=== PATIENT | female | born 1940 | race Caucasian/White ===

== ENCOUNTER → 2019-02-19 11:01 | Oncology outpatient (ONC) | payer MEDICARE, OTHER, SELFPAY ==
[2019-02-19 10:24] VITALS: BP 141/71; PULSE 61; RESP 18; TEMP 36.8; O2SAT 100
--- NOTE | 2019-02-19 10:51 | P.CONONC_ITS ---
History of Present Illness - Data of Consult Consult date: 02/19/19 Primary Care Provider: Ry Garzon MD - Consult Narrative Narrative: Diagnosis: Anemia History of present illness: Elvira Stein is a 78 year old female who is referred for further evaluation of anemia. In November, she was noted to have a white count of 7 point 3, hemoglobin 8.3 hematocrit 26.8 with an MCV of 85 and platelets of [id number]. She had B12 and folate checked that were both normal. In December, her hemoglobin had dropped to 8 hematocrit 25.6 and the MCV was 78. A few weeks later, the CBC was repeated and her hemoglobin had dropped to 6.8 with hematocrit 24.3 and an MCV of 72.8. The patient was referred to the emergency room and did have a transfusion. She believes that prior to the transfusion, she had been feeling fairly well and was going about all of her normal activities. She denied any shortness of breath but did have some dizziness or lightheadedness. She thinks that she might have felt a little bit better after the transfusion. The patient denies any prior history of anemia but her records indicate that she has had prior colonoscopies to evaluate for cause of bleeding in the past. She denies any prior history of transfusion before her most recent episode. She has not been aware of any bleeding and denies any epistaxis or gingival bleeding. She has not been aware of any blood in the urine or stool. She has not had any unusual bruising. Her biggest complaint today is been poor fitting dentures that it made it difficult for her to eat. She has been losing weight. She has some sensitivity to food that she describes as an allergy. She has what sounds like possibly excessive salivation and spitting. She has not noticed any adenopathy. Bowels have been moving somewhat slowly she has some constipation. Her past medical history is notable for hypertension arthritis and allergies. Her had anemia and about a year ago. There is no other family history of anemia. Social history: She is a . She lives by herself. She does not smoke or use alcohol. She previously worked as a job development specialist. CC: Adriano Guo MD Home Medications and Allergies Home Medications Medication Instructions Recorded Confirmed Type bisacodyl 5 mg PO BEDTIME 02/19/19 02/19/19 History cetirizine [Zyrtec] mg 02/19/19 History hydrochlorothiazide 25 mg PO DAILY 02/19/19 02/19/19 History ibuprofen 200 mg PO Q6H PRN 02/19/19 02/19/19 History levocetirizine [Xyzal] 5 mg PO DAILY 02/19/19 02/19/19 History multivitamin 1 cap PO DAILY 02/19/19 02/19/19 History ranitidine HCl [Zantac] 150 mg PO DAILY 02/19/19 02/19/19 History Allergies Allergy/AdvReac Type Severity Reaction Status Date / Time No Known Drug Allergies Allergy Mild PER Unverified 07/26/17 11:47 PATIENT ON 04-07-15 Review of Systems - Patient Self-Reported Symptoms SR Constitution: Weight loss/gain SR Skin issues: Hair loss or scalp prob SR Gastrointestinal issues: Poor or no appetite, Change in bowel pattern SR Hematologic issues: Bleeding/bruising Constitutional: weight loss, normal exercise tolerance Ears, nose, mouth, throat: lightheadedness, dental problems, no gingival bleeding Cardiovascular: edema, no chest pain, no palpitations, no dyspnea on exertion Respiratory: no pain with respirations, no shortness of breath, no cough, no hemoptysis Gastrointestinal: change in appetite, constipation Musculoskeletal: pain Integumentary: no rash, no bleeding or bruising Hematologic/Lymphatic: anemia, no enlarged lymph nodes Exam Vital signs: Vital Signs Temp Pulse Resp BP Pulse Ox 02/19/19 10:24 98.2 F 61 18 141/71 H 100 Intake and Output 02/18/19 02/19/19 02/19/19 23:59 07:59 15:59 Other: Weight 48.4 kg Patient Weight 02/19/19 23:59 Weight 48.4 kg - Constitutional positive no acute distress, positive thin - Routine HEENT Exam Head: Present: normocephalic, atraumatic Eye: Present: EOMI, PERRL. Absent: conjunctival icterus, scleral injection ENT: Present: mucous membranes moist, oropharynx clear. Absent: dentition normal - Routine Neck Exam Present: supple. Absent: lymphadenopathy, thyromegaly - Routine Chest/Breast/Axilla Exam Axillae: Absent: lymphadenopathy - Routine Respiratory Exam Present: Clear to auscultation bilaterally. Absent: rales, wheezes - Routine Cardiovascular Exam Present: RRR, S1, S2. Absent: murmur - Routine Abdominal Exam Present: soft, normoactive bowel sounds. Absent: tenderness, organomegaly, mass - Routine Extremities Exam Absent: cyanosis, clubbing, edema - Routine Back/Spine Exam Back/Spine: Absent: vertebral tenderness - Routine Skin Exam Present: intact. Absent: petechiae, rash - Routine Neurological Exam Present: alert, oriented X3 - Routine Psychiatric Exam Present: normal affect, normal thought process Results - Imaging Additional studies: Procedures Endoscopic polypectomy of large intestine (07/14/14) Assessment and Plan (1) Anemia Current visit: Yes Status: Acute This is a 78-year-old woman with anemia of uncertain duration however it seems to have worsened with the development of a microcytosis of the last few months. This is most concerning for iron deficiency. We will plan on repeating a CBC today as well as a reticulocyte count ferritin and iron studies. She has already had a normal B12 and folate. We will plan on checking SPEP and a UPEP to rule out an underlying myeloma. Hypothyroidism can occasionally present his anemia will check a TSH. She will return to clinic in about 2 weeks or so for follow-up. Id if this is iron deficiency, she may need a colonoscopy to evaluate for a bleeding source. If no cause for her anemia is discovered, we may need to consider a bone marrow biopsy to evaluate for intrinsic problems in the marrow. However, white cell count and platelet count have been normal which is somewhat reassuring.
[2019-02-19 11:22] LABS: Add Manual Diff / Slide Review NO; Basophils Absolute Auto 100 /uL (0-100); Basophils Percent Auto 0.8 % (0-2); Eosinophils Absolute Auto 100 /uL (0-450); Hemoglobin 9.2 g/dL (12.0-16.0); Lymphocytes Absolute Auto 1200 /uL (1100-4500); Lymphocytes Percent Auto 10.8 % (25-40); Mean Corpuscular HGB Conc 30.8 % (30-36); Mean Corpuscular Hemoglobin 20.7 PG (26-34); Mean Corpuscular Volume 67.1 fL (80-100); Monocytes Absolute Auto 1000 /uL (0-900); Monocytes Percent Auto 8.7 % (3-14); Neutrophils Absolute Auto 8600 /uL (1500-7000); Neutrophils Percent Auto 78.7 % (50-75); Platelet Count 489 X10^3/uL (150-400); Red Blood Cell Count 4.48 X10^6/uL (4.0-5.2); Red Cell Distribution Width 20.4 % (11.6-14.8); White Blood Cell Count 10.9 X10^3/uL (4.5-11.0)
[2019-02-19 11:29] LABS: Reticulocyte Count, Percent 1.6 % (1.06-2.63)
[2019-02-19 11:33] LABS: Alanine Aminotransferase 13 IU/L (<35); Albumin 3.7 g/dL (3.5-5.0); Albumin Globulin Ratio 1.3 (1.0-2.8); Alkaline Phosphatase 95 U/L (38-126); Aspartate Aminotransferase 25 IU/L (14-36); Bilirubin Total 0.3 mg/dL (0.2-1.3); Blood Urea Nitrogen 18 mg/dL (7-17); Calcium 8.7 mg/dL (8.4-10.2); Carbon Dioxide 31 mmol/L (22-32); Chloride 95 mmol/L (98-107); Estimated Glomerular Filt Rate > 60.0 mL/min (>60); Globulin 2.8 g/dL (1.7-4.1); Glucose 150 mg/dL (80-110); HEMOLYSIS < 15 (0-50); Sodium 134 mmol/L (137-145); Total Protein 6.5 g/dL (6.3-8.2)
[2019-02-19 11:57] LABS: Anisocytosis 2+; Hypochromasia 1+; Microcytosis 2+; Ovalocytes 1+; Poikilocytosis 1+
[2019-02-19 12:08] LABS: Appearance Urine UA CLEAR; Bilirubin Urine UA NEGATIVE (NEGATIVE); Color Urine UA YELLOW; Ferritin 5.9 ng/mL (11.1-264); Glucose Urine UA NEGATIVE (Negative); Ketones Urine UA NEGATIVE (NEGATIVE); Leukocyte Esterase Urine UA NEGATIVE (NEGATIVE); Nitrite Urine UA NEGATIVE (Negative); Occult Blood Urine UA NEGATIVE (Negative); Protein Urine UA NEGATIVE (Negative); Specific Gravity Urine UA <=1.005 (1.000-1.035); Urobilinogen Urine UA 0.2 E.U./dL (0.2)
[2019-02-19 12:11] LABS: pH Urine UA 6.5 (4.5-8.0)
[2019-02-19 12:21] LABS: HEMOLYSIS < 15 (0-50); Iron 25 ug/dL (37-170)
[2019-02-19 12:30] LABS: WBC Urine 0-1/HPF (0-5/HPF)
[2019-02-19 12:31] LABS: Bacteria Urine Occasional (0-1); Calcium Oxalate Crystals Urine Moderate; Culture Indicated Urine Cult Not Indicated; RBC Urine None Seen (0-5/HPF); Squamous Epithelial Cell Urine 0-1 /HPF (0-5/HPF)
[2019-02-19 12:32] LABS: Percent Iron Saturation 6 % (15-50); Total Iron Binding Capacity 433 ug/dL (265-497); Transferrin 355 mg/dL (206-381)
[2019-02-19 12:53] LABS: Thyroid Stimulating Hormone 1.45 uIU/mL (0.47-4.68)
[2019-02-21 21:22] LABS: Albumin 2.9 g/dL (3.8-4.8); Alpha 1 Globulin 0.4 g/dL (0.2-0.3); Alpha 2 Globulin 0.9 g/dL (0.5-0.9); Beta 1 Globulin 0.5 g/dL (0.4-0.6); Gamma Globulin 0.9 g/dL (0.8-1.7)
[2019-02-22 13:30] LABS: Albumin 100 %; Protein/ Creatinine Ratio 157 mg/g creat (21-161); Total Urine Protein 8 mg/dL (5-24); Urine Creatinine, Random 51 mg/dL (20-275)
== END ==
PROVIDERS: PCP Family Medicine
DX: D64.9 Anemia, unspecified (principal); I10 Essential (primary) hypertension
CPT/HCPCS: 36415; 80053; 81001; 82728; 83540; 83550; 84155; 84156; 84165; 84166; 84443; 85025; 85045; 99204; 99214